=== PATIENT | male | born 1995 | race Caucasian/White ===

== ENCOUNTER → 2021-02-20 09:15 | Outpatient (CLI) | payer BC, SELFPAY | PROVIDERS: PCP Internal Medicine Adolescent Medicine; Visit Provider Nurse Practitioner | DX: Z20.822 Contact with and (suspected) exposure to COVID-19 (principal) | CPT/HCPCS: C9803; U0003; U0005 ==

== ENCOUNTER → 2021-03-07 09:24 | Outpatient (CLI) | payer BC, SELFPAY | PROVIDERS: PCP Internal Medicine Adolescent Medicine; Visit Provider Nurse Practitioner | DX: Z20.822 Contact with and (suspected) exposure to COVID-19 (principal) | CPT/HCPCS: C9803; U0003; U0005 ==

== ENCOUNTER → 2021-06-05 11:02 | Outpatient (CLI) | payer BC, SELFPAY | PROVIDERS: Visit Provider Nurse Practitioner | DX: U07.1 COVID-19 (principal) | CPT/HCPCS: C9803; U0003; U0005 ==

== ENCOUNTER → 2021-06-12 14:59 | Outpatient (CLI) | payer BC, SELFPAY ==
[2021-06-12 15:25] LABS: Basophils # 0.1 K/mm3 (0-0.2); Basophils % 2.3 % (0.1-2.0); Eosinophils % 0.4 % (0.1-12.0); Hematocrit 49.4 % (42.0-52.0); Hemoglobin 17.7 g/dL (14.1-18.0); Lymphocytes # 1.2 K/mm3 (0.7-4.5); Lymphocytes % 31.1 % (10-50); Mean Corpuscular HGB Conc 35.9 g/dL (31.8-35.4); Mean Corpuscular Hemoglobin 33.5 pg (27.0-31.2); Mean Corpuscular Volume 93.4 fl (80-94); Mean Platelet Volume 8.3 fl (7.4-10.4); Monocytes # 0.3 K/mm3 (0.1-1.0); Monocytes % 6.5 % (1.7-9.3); Neutrophils # 2.4 K/mm3 (1.8-7.8); Neutrophils % 59.7 % (37.0-80.0); Platelet Count 181 K/mm3 (142-424); Red Blood Count 5.29 M/mm3 (4.60-6.20); Red Cell Distribution Width 12.9 % (11.5-17.5)
[2021-06-12 15:38] LABS: Alanine Aminotransferase 179 U/L (12-78); Albumin Level 4.9 g/dl (3.5-5.0); Albumin/Globulin Ratio 1.3 (1.1-1.8); Alkaline Phosphatase 143 U/L (38-126); Anion Gap 15.1 mEq/L (5-15); Aspartate Amino Transferase 173 U/L (17-59); Blood Urea Nitrogen 13 mg/dl (9-20); Calcium 9.8 mg/dl (8.4-10.2); Carbon Dioxide 32 mmol/L (22.0-30.0); Chloride 92 mmol/L (98-107); Estimated Glomerular Filt Rate 101 ml/min (>60); GFR (African American) 122 ML/MIN (>60); Globulin 3.7 g/dL (1.3-3.2); Glucose 105 mg/dl (74-100); Potassium 4.1 mmoL/L (3.5-5.1); Sodium 135 mmol/L (136-145); Total Protein,Serum 8.6 g/dl (6.3-8.2)
[2021-06-12 15:43] LABS: D-Dimer 0.52 ug/mL (0.0-0.5)
[2021-06-12 16:11] LABS: Thyroid Stimulating Hormone 3.54 uIU/mL (0.465-4.68)
== END ==
PROVIDERS: PCP Internal Medicine Adolescent Medicine; Visit Provider Nurse Practitioner Family
DX: R06.02 Shortness of breath (principal); R00.0 Tachycardia, unspecified
CPT/HCPCS: 36415; 80053; 84443; 85025; 85378

== ENCOUNTER 2021-09-12 09:09 | Emergency (ER) | payer BC, SELFPAY ==
[2021-09-12 09:09] VITALS: BP 134/90; PULSE 102; RESP 19; TEMP 37; O2SAT 97; BMI 28.5
--- NOTE | 2021-09-12 09:43 | HMH.EDUTC ---
[facility] [place] Clinical Impression: Viral syndrome Disposition: Home, Self-Care Condition on Discharge: Good Instructions: DI for Fever (Symptom) -- Adult, Ibuprofen, Acetaminophen (Alternative Therapy) Additional Instructions: *Monitor Temp, Over the counter Motrin or Tylenol as directed/as needed Tylenol every 4 hours and Motrin every 6 hours (as long as your family doctor has told you that you can take it) for fever or pain. and straight to ER if unable to lower temp less than 101.0 after medication given *Warm salt water gargles may help to soothe the throat *Throat Lozenges *Warm fluids like tea with honey may help to soothe the throat *Sleep elevated *Humidifier/Vaporizer Follow up IMMEDIATELY for new or worsening symptoms or no Noticeable Your Upper Respiratory Panel should be back later this evening you may check your results on the [facility] [employer] [facility] Referrals: Pato Hendricks MD [Primary Care Provider] - As needed Forms: Work/School Release Time of Disposition: 09:48 Medical Decision Making - Jl Inquiry Pt receiving controlled substance: No Jl was queried for this patient: No Vital Signs: 09/12/21 09:09 Temperature 98.6 F Temperature Source Oral Pulse Rate [Right Radial] 102 H Respiratory Rate 19 Blood Pressure [Right Arm] 134/90 Blood Pressure Mean [Right Arm] 104 Blood Pressure Source [Right Arm] Automatic Cuff Blood Pressure Position [Right Arm] Sitting 02 Sat by Pulse Oximetry 97 Oxygen Delivery Method Room Air - Lab Data Lab results reviewed: Yes: I reviewed the patient's lab results. Lab Results 09/12/21 09:32: Influenza Type A Ag Negative, Influenza Type B Ag Negative [facility] [place] - General Stated complaint: flu and covid test Time Seen by Provider: 09/12/21 09:43 Mode of Arrival: Ambulatory Source of Information: Patient Limitations: No Limitations Description of Symptoms (Recalled from Triage Doc. by RN): C/O chills, bodyaches, cough since yesterday HEENT Symptoms (Recalled from RN notes): No Resp Symptoms (Recalled from RN notes): Yes (cough) Skin Symptoms (Recalled from RN notes): No MS Symptoms (Recalled from RN notes): Yes (bodyaches) Functional Status (Recalled from RN notes): n/a - History of Present Illness Provider Complaint: Patient states that he started having body aches, chills and not feeling well this morning woke up with fever so he came in worried wanting to get checked for flu and COVID - Related Data Home Medications Medication Instructions Recorded Confirmed ranitidine HCl 75 mg tablet 75 mg PO DAILY 10/24/18 06/27/21 Previous Rx's Medication Instructions Recorded fluoxetine 20 mg capsule 20 mg PO DAILY #30 cap 06/27/21 Allergies Allergy/AdvReac Type Severity Reaction Status Date / Time Penicillins Allergy Mild Verified 06/27/21 09:00 - Worker's Comp Is this a Worker's Comp case?: No [facility] History - Hepatitis A Screen Drug use history?: No High risk sexual behaviors?: No History of sexually transmitted infection?: No Currently employed?: No Childcare worker?: No Do you have indoor plumbing?: Yes Do you have electricity?: Yes Attestation statement:: This patient has been screened for Hepatitis A risk factors. I have reviewed the patient's past medical history: Yes Other Medical History: Reports: Other Comment: Acid Reflux Other Surgeries: Yes: No Previous Surgery Amputation: No Fractures: No - Social History Smoking Status: Never smoker Alcohol Intake: current Alcohol Intake Frequency:: a few times a month (used to be a serious binge drinker; sober for 3 weeks now) Substance Use Type: denies use Occupational Status: employed Housing: house Household Members: significant other Family Hx:: Cancer ROS Obtained: Yes All systems reviewed & no additional complaints, Yes Systems reviewed as appropriate & no additional complaints - Constitutional Constitutional: Reports system reviewed and no additional
[2021-09-12 09:44] LABS: UTC Influenza A Antigen Negative (Negative)
[2021-09-12 09:45] LABS: UTC Influenza B Antigen Negative (Negative)
[2021-09-12 09:58] VITALS: BP 134/90; PULSE 102; RESP 19; TEMP 37; O2SAT 97
[2021-09-12 10:36] LABS: Adenovirus,PCR Not Detected (NotDetected); Bordetella Pertussis Not Detected (NotDetected); Chlamydophila Pneumoniae, PCR Not Detected (NotDetected); Coronavirus 19, PCR Not Detected (NotDetected); Coronavirus 229E Not Detected (NotDetected); Coronavirus NL63 Not Detected (NotDetected); Coronavirus OC43 Not Detected (NotDetected); Coronovirus HKU1,PCR Not Detected (NotDetected); Human Metapneumovirus Not Detected (NotDetected); Influenza A, PCR Not Detected (NotDetected); Influenza AH1, 2009 Not Detected (NotDetected); Influenza AH1, PCR Not Detected (NotDetected); Influenza AH3,PCR Not Detected (NotDetected); Influenza B, PCR Not Detected (NotDetected); Mycoplasma Pneumoniae, PCR Not Detected (NotDetected); Parainfluenza 1, PCR Not Detected (NotDetected); Parainfluenza 2, PCR Not Detected (NotDetected); Parainfluenza 3, PCR Not Detected (NotDetected); Parainfluenza 4, PCR Not Detected (NotDetected); Respiratory Syncytial Virus Not Detected (NotDetected); Rhinovirus/Enterovirus Not Detected (NotDetected)
== END 2021-09-12 09:59 | disposition home or self-care (01) ==
PROVIDERS: Emergency Provider Nurse Practitioner; PCP Internal Medicine Adolescent Medicine
DX: B34.9 Viral infection, unspecified (principal); R50.9 Fever, unspecified
CPT/HCPCS: 87581; 87632; 87798; 87804; 99212; C9803; G0463; U0003; U0005

== ENCOUNTER → 2021-11-01 08:04 | Outpatient (CLI) | payer BC, SELFPAY | PROVIDERS: PCP Nurse Practitioner Family; Visit Provider Nurse Practitioner Family | DX: Z00.00 Encounter for general adult medical examination without abnormal findings (principal); R74.8 Abnormal levels of other serum enzymes ==

== ENCOUNTER → 2021-12-09 13:47 | Outpatient (CLI) | payer BC, SELFPAY ==
[2021-12-09 21:58] LABS: Basophils # 0.1 K/mm3 (0-0.2); Chloride 101 mmol/L (98-107); Eosinophils # 0.3 K/mm3 (0.0-0.4); Eosinophils % 4.1 % (0.1-12.0); Hematocrit 45.2 % (42.0-52.0); Hemoglobin 15.8 g/dL (14.1-18.0); Lymphocytes # 1.2 K/mm3 (0.7-4.5); Lymphocytes % 14.8 % (10-50); Mean Corpuscular HGB Conc 34.8 g/dL (31.8-35.4); Mean Corpuscular Hemoglobin 33.9 pg (27.0-31.2); Mean Corpuscular Volume 97.4 fl (80-94); Mean Platelet Volume 9.2 fl (7.4-10.4); Monocytes # 0.4 K/mm3 (0.1-1.0); Neutrophils # 5.9 K/mm3 (1.8-7.8); Neutrophils % 75.1 % (37.0-80.0); Platelet Count 249 K/mm3 (142-424); Red Blood Count 4.65 M/mm3 (4.60-6.20); Red Cell Distribution Width 12.5 % (11.5-17.5); Sodium 140 mmol/L (136-145); White Blood Count 7.9 K/mm3 (4.8-10.8)
[2021-12-09 21:59] LABS: Potassium 3.5 mmoL/L (3.5-5.1)
[2021-12-09 22:01] LABS: Alanine Aminotransferase 178 U/L (12-78); Alkaline Phosphatase 107 U/L (38-126); Anion Gap 15.5 mEq/L (5-15); Aspartate Amino Transferase 193 U/L (17-59); Bilirubin,Total 0.7 mg/dl (0.2-1.3); Blood Urea Nitrogen 10 mg/dl (9-20); Carbon Dioxide 27 mmol/L (22.0-30.0); Estimated Glomerular Filt Rate 135 ml/min (>60); GFR (African American) 164 ML/MIN (>60)
[2021-12-09 22:02] LABS: Albumin Level 4.8 g/dl (3.5-5.0); Albumin/Globulin Ratio 1.7 (1.1-1.8); Calcium 10.2 mg/dl (8.4-10.2); Globulin 2.9 g/dL (1.3-3.2); Glucose 136 mg/dl (74-100); Total Protein,Serum 7.7 g/dl (6.3-8.2)
[2021-12-09 22:37] LABS: Ferritin 574 ng/ml (17.9-464)
[2021-12-14 22:58] LABS: Hep A Ab, IgM NEGATIVE; Hepatitis B Core Antibody IgM NEGATIVE; Hepatitis B Surface Antigen NEGATIVE; Hepatitis C Antibody 0.2
== END ==
PROVIDERS: PCP Nurse Practitioner Family; Visit Provider Nurse Practitioner Family
DX: R74.8 Abnormal levels of other serum enzymes (principal); R10.13 Epigastric pain; R11.10 Vomiting, unspecified
CPT/HCPCS: 80053; 80074; 82728; 85025

== ENCOUNTER → 2021-12-10 06:31 | Outpatient (CLI) | payer BC, SELFPAY ==
--- NOTE | 2021-12-10 06:37 | CT_ITS ---
FINAL REPORT TECHNIQUE: Axial images through the abdomen and pelvis were performed by computed tomography. Oral contrast was given. This study was performed with techniques to keep radiation doses as low as reasonably achievable, (ALARA). Individualized dose reduction techniques using automated exposure control or adjustment of mA and/or kV according to the patient's size were employed. CLINICAL HISTORY: ELEVATED LIVER ENZYMES, EPIGASTRIC PAIN, RECURRENT VOMITING FINDINGS: ABDOMEN: There are several calcified granulomas at the left lung base. The heart size is normal. There is fatty infiltration of the liver. The spleen is normal. No adrenal mass is identified. The aorta is normal in caliber. There is no significant free fluid or adenopathy. There is no nephrolithiasis. There is no hydronephrosis. PELVIS: The appendix is unremarkable. There is diffuse colon wall thickening worrisome for mild colitis. The urinary bladder is unremarkable. There is no significant free fluid or adenopathy. IMPRESSION: Findings worrisome for mild colitis. Reviewed, Interpreted and Dictated by Aubrey Nguyen III, MD Transcribed by Glenis Vargas Authenticated and [facility]
== END ==
LOC: RAD 06:32
PROVIDERS: PCP Internal Medicine Adolescent Medicine; Visit Provider Internal Medicine Adolescent Medicine
DX: R10.13 Epigastric pain (principal); R11.2 Nausea with vomiting, unspecified; R74.8 Abnormal levels of other serum enzymes
CPT/HCPCS: 74176

== ENCOUNTER → 2022-02-13 13:48 | Outpatient (CLI) | payer BC, SELFPAY ==
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
--- NOTE | 2022-02-13 14:04 | XR_ITS ---
FINAL REPORT CLINICAL HISTORY: R/O METAL FOREIGN BODY FOR MRI FINDINGS: ORBITS Look up and look down views were obtained. No fracture is identified. The sinuses are clear. No foreign body is identified. IMPRESSION: No acute process. Reviewed, Interpreted and Dictated by Lucio Price MD Transcribed by Conner Connolly Authenticated and [facility]
== END ==
LOC: RAD 13:49
PROVIDERS: PCP Internal Medicine Adolescent Medicine; Visit Provider Nurse Practitioner Psychiatric/Mental Health
DX: R41.0 Disorientation, unspecified (principal); H05.53 Retained (old) foreign body following penetrating wound of bilateral orbits
CPT/HCPCS: 70200; 70551

== ENCOUNTER → 2022-06-22 12:56 | Outpatient (CLI) | payer BC, SELFPAY ==
[2022-06-22 13:38] LABS: Basophils # 0.1 K/mm3 (0-0.2); Basophils % 1.5 % (0.1-2.0); Eosinophils # 0.3 K/mm3 (0.0-0.4); Eosinophils % 4.1 % (0.1-12.0); Hematocrit 45.8 % (42.0-52.0); Hemoglobin 15.6 g/dL (14.1-18.0); Lymphocytes # 1.4 K/mm3 (0.7-4.5); Lymphocytes % 20.2 % (10-50); Mean Corpuscular HGB Conc 34.2 g/dL (31.8-35.4); Mean Corpuscular Hemoglobin 32.6 pg (27.0-31.2); Mean Corpuscular Volume 95.4 fl (80-94); Mean Platelet Volume 7.8 fl (7.4-10.4); Monocytes # 0.3 K/mm3 (0.1-1.0); Neutrophils # 4.8 K/mm3 (1.8-7.8); Neutrophils % 69.3 % (37.0-80.0); Platelet Count 305 K/mm3 (142-424); Red Blood Count 4.79 M/mm3 (4.60-6.20); Red Cell Distribution Width 12.8 % (11.5-17.5); White Blood Count 6.9 K/mm3 (4.8-10.8)
[2022-06-22 13:48] LABS: INR 0.98 (0.9-1.1); Prothrombin Time 10.6 seconds (10.1-12.5)
[2022-06-22 13:50] LABS: Ammonia < 9 umol/L (9-30)
[2022-06-22 14:02] LABS: Alanine Aminotransferase 113 U/L (12-78); Albumin Level 4.8 g/dl (3.5-5.0); Albumin/Globulin Ratio 1.7 (1.1-1.8); Alkaline Phosphatase 93 U/L (38-126); Anion Gap 6.2 mEq/L (5-15); Aspartate Amino Transferase 103 U/L (17-59); Bilirubin,Total 0.6 mg/dl (0.2-1.3); Blood Urea Nitrogen 15 mg/dl (9-20); Calcium 9.7 mg/dl (8.4-10.2); Carbon Dioxide 31 mmol/L (22.0-30.0); Chloride 103 mmol/L (98-107); Estimated Glomerular Filt Rate 100 ml/min (>60); GFR (African American) 122 ML/MIN (>60); Globulin 2.9 g/dL (1.3-3.2); Glucose 103 mg/dl (74-100); Potassium 4.2 mmoL/L (3.5-5.1); Sodium 136 mmol/L (136-145); Total Protein,Serum 7.7 g/dl (6.3-8.2)
[2022-06-22 14:04] LABS: Iron 90 ug/dL (49-181)
[2022-06-22 14:05] LABS: Erythrocyte Sedimentation Rate 16 mm/hr (0-15)
[2022-06-22 14:14] LABS: Total Iron Binding Capacity 294 ug/dL (261-462)
[2022-06-22 14:19] LABS: 25-OH Vitamin D, Total 27.4 ng/mL (30-100)
[2022-06-22 14:49] LABS: Ferritin 291 ng/ml (17.9-464)
[2022-06-22 15:08] LABS: Vitamin B12 357 pg/mL (239-931)
[2022-06-22 15:18] LABS: Folate 5.76 ng/mL
[2022-06-26 00:07] LABS: Vitamin B1 151.9 nmol/L (66.5-200.0)
[2022-06-29 05:06] LABS: Hep A Ab, IgM Negative; Hepatitis B Surface Antigen Negative
[2022-06-29 05:07] LABS: Hepatitis B Core Antibody IgM Negative; Hepatitis C Antibody <0.1
== END ==
PROVIDERS: PCP Physician Assistant; Visit Provider Specialist
DX: R74.8 Abnormal levels of other serum enzymes (principal); E55.9 Vitamin D deficiency, unspecified
CPT/HCPCS: 36415; 80053; 80074; 81256; 82140; 82306; 82607; 82728; 82746; 83540; 83550; 84425; 85025; 85610; 85651

== ENCOUNTER 2022-11-25 15:54 | Emergency (ER) | payer BC, SELFPAY ==
[2022-11-25 16:00] VITALS: BP 157/99; BP 164/99; PULSE 100; PULSE 105; RESP 19; TEMP 36.6; O2SAT 100; O2SAT 98; BMI 28.7
--- NOTE | 2022-11-25 16:17 | PC.NURSE ---
DR BLANDON AT BEDSIDE
[2022-11-25 16:30] VITALS: BP 146/99; PULSE 90; O2SAT 97
[2022-11-25 16:42] LABS: Chloride 94 mmol/L (98-107)
[2022-11-25 16:43] LABS: Sodium 140 mmol/L (136-145)
[2022-11-25 16:45] LABS: Alanine Aminotransferase 138 U/L (12-78); Alkaline Phosphatase 108 U/L (38-126); Aspartate Amino Transferase 136 U/L (17-59); Basophils # 0.1 K/mm3 (0-0.2); Basophils % 0.8 % (0.1-2.0); Bilirubin,Total 0.5 mg/dl (0.2-1.3); Blood Urea Nitrogen 6 mg/dl (9-20); Creatinine Clearance Estimated 209 mL/min (50-200); Eosinophils % 0.4 % (0.1-12.0); Estimated Glomerular Filt Rate 160 ml/min (>60); GFR (African American) 194 ML/MIN (>60); Hematocrit 43.9 % (42.0-52.0); Hemoglobin 14.6 g/dL (14.1-18.0); Lymphocytes # 1.2 K/mm3 (0.7-4.5); Lymphocytes % 14.8 % (10-50); Mean Corpuscular HGB Conc 33.3 g/dL (31.8-35.4); Mean Corpuscular Hemoglobin 31.2 pg (27.0-31.2); Mean Corpuscular Volume 93.6 fl (80-94); Monocytes # 0.6 K/mm3 (0.1-1.0); Monocytes % 7.4 % (1.7-9.3); Neutrophils # 6.3 K/mm3 (1.8-7.8); Neutrophils % 76.6 % (37.0-80.0); Platelet Count 320 K/mm3 (142-424); Red Blood Count 4.69 M/mm3 (4.60-6.20); Red Cell Distribution Width 13.2 % (11.5-17.5); White Blood Count 8.2 K/mm3 (4.8-10.8)
[2022-11-25 16:46] LABS: Albumin Level 4.3 g/dl (3.5-5.0); Albumin/Globulin Ratio 1.3 (1.1-1.8); Calcium 8.8 mg/dl (8.4-10.2); Carbon Dioxide 31 mmol/L (22.0-30.0); Globulin 3.3 g/dL (1.3-3.2); Glucose 114 mg/dl (74-100); Total Protein,Serum 7.6 g/dl (6.3-8.2)
[2022-11-25 16:47] LABS: Magnesium 0.9 mg/dl (1.6-2.3)
[2022-11-25 16:49] LABS: Ethyl Alcohol < 10 mg/dl (0-10)
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
--- NOTE | 2022-11-25 16:58 | PC.NURSE ---
CHECKED ON PT NOTHING NEEDED, MOM AT BS
[2022-11-25 17:01] VITALS: BP 153/99; PULSE 90; RESP 20; O2SAT 98
[2022-11-25 17:31] VITALS: BP 156/97; PULSE 112; RESP 20; O2SAT 98
[2022-11-25 18:01] VITALS: BP 163/94; PULSE 109; O2SAT 97
[2022-11-25 18:20] VITALS: BP 163/94; PULSE 110; RESP 16; TEMP 36.6
== END 2022-11-25 18:20 | disposition home or self-care (01) ==
PROVIDERS: Emergency Provider Student in an Organized Health Care Education/Training Program
DX: E87.6 Hypokalemia (principal); E83.42 Hypomagnesemia; F10.239 Alcohol dependence with withdrawal, unspecified; F41.1 Generalized anxiety disorder; F17.210 Nicotine dependence, cigarettes, uncomplicated
CPT/HCPCS: 80053; 83735; 85025; 96361; 96374; 99285; J3475

== ENCOUNTER 2024-01-02 11:53 | Emergency (ER) | payer BC, SELFPAY ==
[2024-01-02 11:53] VITALS: BP 113/77; PULSE 138; RESP 23; TEMP 36.6; O2SAT 98; BMI 25.0
--- NOTE | 2024-01-02 11:56 | PC.NURSE ---
DR POWELL AT BEDSIDE
[2024-01-02 12:00] VITALS: BP 110/62; PULSE 138; RESP 24; TEMP 36.7; O2SAT 98; BMI 25.0
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
[2024-01-02 12:10] VITALS: BMI 25.0
[2024-01-02] MEDS: LACTATED RINGERS 1000ML 1,000 ML 999 ML IV (12:10)
[2024-01-02] MEDS: ONDANSETRON 4MG/2ML VIAL 4 MG IV ×2 (12:15→13:26)
[2024-01-02] MEDS: HYDROMORPHONE 2MG/ML SYRINGE 0.5 MG IV (12:15)
[2024-01-02 12:19] LABS: Albumin Level 4.8 g/dl (3.5-5.0); Chloride 102 mmol/L (98-107); Sodium 139 mmol/L (136-145)
[2024-01-02 12:20] LABS: Potassium 4.7 mmoL/L (3.5-5.1)
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
[2024-01-02 12:22] LABS: Alanine Aminotransferase 80 U/L (12-78); Albumin/Globulin Ratio 1.7 (1.1-1.8); Alkaline Phosphatase 71 U/L (38-126); Anion Gap 19.7 mEq/L (5-15); Aspartate Amino Transferase 138 U/L (17-59); Bilirubin,Total 0.9 mg/dl (0.2-1.3); Blood Urea Nitrogen 27 mg/dl (9-20); Carbon Dioxide 22 mmol/L (22.0-30.0); Creatinine Clearance Estimated 72 mL/min (50-200); Estimated Glomerular Filt Rate 51 ml/min (>60); GFR (African American) 62 ML/MIN (>60); Globulin 2.9 g/dL (1.3-3.2); Total Protein,Serum 7.7 g/dl (6.3-8.2)
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
[2024-01-02 12:23] LABS: Calcium 8.5 mg/dl (8.4-10.2); Glucose 191 mg/dl (74-100)
[2024-01-02 12:26] LABS: Ethyl Alcohol < 10 mg/dl (0-10)
[2024-01-02 12:28] LABS: Activated Partial Thrombo Time 28.2 seconds (22.8-30.6); INR 0.93 (0.9-1.1); Prothrombin Time 10.5 seconds (10.1-12.5)
[2024-01-02] MEDS: SODIUM CHLORIDE 0.9% 10ML SYR (RAD ONLY) 10 ML IV (12:33)
[2024-01-02] MEDS: 0.9 % SODIUM CHLORIDE 50 ML VIAL 100 ML IV (12:33)
[2024-01-02] MEDS: IOPAMIDOL-370 (76%);100ML BOTTLE 160 ML IV (12:33)
--- NOTE | 2024-01-02 12:47 | PC.NURSE ---
Dr. Penaloza was asked to come to radiology to view scans. He then asked for staff to call for Trauma team for transfer.
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
[2024-01-02 12:51] VITALS: BP 159/100; PULSE 110; RESP 25; O2SAT 100
[2024-01-02 12:52] LABS: Basophils % 0.2 % (0.1-2.0); Eosinophils % 0.2 % (0.1-12.0); Hematocrit 39.3 % (42.0-52.0); Hemoglobin 13.3 g/dL (14.1-18.0); Lymphocytes # 0.9 K/mm3 (0.7-4.5); Lymphocytes % 7.4 % (10-50); Mean Corpuscular HGB Conc 33.9 g/dL (31.8-35.4); Mean Corpuscular Hemoglobin 31.2 pg (27.0-31.2); Mean Platelet Volume 8.8 fl (7.4-10.4); Monocytes # 0.8 K/mm3 (0.1-1.0); Monocytes % 6.6 % (1.7-9.3); Neutrophils % 85.7 % (37.0-80.0); Platelet Count 324 K/mm3 (142-424); Red Blood Count 4.28 M/mm3 (4.60-6.20); Red Cell Distribution Width 14.1 % (11.5-17.5); White Blood Count 11.7 K/mm3 (4.8-10.8)
[2024-01-02 12:53] LABS: MANUAL DIFFERENTIAL MANUAL DIFFERENTIAL (MANUAL DIFF)
--- NOTE | 2024-01-02 12:53 | PC.NURSE ---
[facility] accepted pt flight eta 22 minutes
--- NOTE | 2024-01-02 12:54 | PC.NURSE ---
house notified of helicopter coming and eta 22 minutes
[2024-01-02 13:00] VITALS: BP 138/97; PULSE 112; RESP 23; O2SAT 98
[2024-01-02] MEDS: TET/DIPHTH/PERT-ADULT 0.5ML SYRINGE 0.5 ML IM (13:07)
[2024-01-02] MEDS: SODIUM CHLORIDE 0.9% 10ML FLUSH SYRINGE 10 ML IV ×2 (13:10→13:36)
[2024-01-02] MEDS: CEFTRIAXONE SODIUM 2 GM in 0.9 % SODIUM CHLORIDE 100 ML IV (13:11)
--- NOTE | 2024-01-02 13:11 | PC.NURSE ---
pt left arm splinted in place
[2024-01-02 13:15] VITALS: BP 133/97; PULSE 110; RESP 24; TEMP 36.8; O2SAT 98
[2024-01-02 13:35] LABS: Lymphocytes % 9 % (10-50); Monocytes % 11 % (2-9); Neutrophils % 79 % (42-76); Platelet Estimate Normal; RBC Morphology Normal; Total Cells Counted 100
== END 2024-01-02 13:18 | disposition short-term general hospital (02) ==
PROVIDERS: Emergency Provider Emergency Medicine
DX: S36.032A Major laceration of spleen, initial encounter (principal); V86.59XA Driver of other special all-terrain or other off-road motor vehicle injured in nontraffic accident, initial encounter; Z23 Encounter for immunization; S36.116A Major laceration of liver, initial encounter; S52.252A Displaced comminuted fracture of shaft of ulna, left arm, initial encounter for closed fracture; K66.1 Hemoperitoneum
CPT/HCPCS: 70450; 70496; 70498; 71275; 72125; 72128; 72131; 73090; 73110; 73564; 74174; 80053; 80320; 85007; 85025; 85027; 85610; 85730; 86850; 90471; 90715; 96365; 96375; 96376; 99291; G0480; J0696; J1170; J2405; J7120; Q9967

== ENCOUNTER 2024-02-03 09:50 | Outpatient (CLI) | payer BC, SELFPAY ==
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
== END 2024-02-03 23:59 | disposition home or self-care (01) ==
LOC: RAD 09:52
PROVIDERS: PCP Nurse Practitioner Family; Visit Provider Orthopaedic Surgery
DX: S52.92XA Unspecified fracture of left forearm, initial encounter for closed fracture (principal)
CPT/HCPCS: 73110

== ENCOUNTER 2024-03-02 10:11 | Outpatient (CLI) | payer BC, SELFPAY ==
--- NOTE | 2024-03-02 10:15 | XR_ITS ---
FINAL REPORT CLINICAL HISTORY: Left wrist fracture. COMPARISON: February 03, 2024. FINDINGS: LEFT WRIST Three views demonstrate a subacute fracture of the distal ulna with callus formation. The visualized joint spaces are normally aligned. The soft tissues are unremarkable. IMPRESSION: Subacute fracture of the distal ulna with callus formation. Reviewed, Interpreted and Dictated by Aubrey Nguyen III, MD Transcribed by Courtney Cross PA-C Authenticated and [facility]
== END 2024-03-02 23:59 | disposition home or self-care (01) ==
LOC: RAD 10:13
PROVIDERS: PCP Nurse Practitioner Family; Visit Provider Orthopaedic Surgery
DX: M25.532 Pain in left wrist (principal); S52.692A Other fracture of lower end of left ulna, initial encounter for closed fracture
CPT/HCPCS: 73110